=== PATIENT | male | born 1960 | race Caucasian/White ===

== ENCOUNTER 2016-09-02 15:43 | Emergency (ER) | payer OTHER ==
[~2016-09-02] VITALS: Wt 79.0 kg
[~2016-09-02 15:43] MED LIST: LISI-327 PO
[2016-09-02] MEDS ORDERED: KETOROLAC 30 MG INJ IM STA (19:37)
[2016-09-02] MEDS ORDERED: HYDR-906 PO (19:39)
[2016-09-02 19:50] VITALS: BP 170/93; PULSE 65; RESP 17; TEMP 97.8
--- NOTE | 2016-09-02 20:44 | ERD ---
ER Documentation Chief Complaint Date/Time DATE: 09/02/16 TIME: 20:41 Chief Complaint RIGHT FOOT/HEEL PAIN X6 MONTHS HPI 56-year-old male otherwise healthy comes in with right heel pain for 6 months. Patient states that his primary care doctor did an x-ray, as well as an MRI, he was told that there was inflammation in the tendon, and he is supposed to see a room service bellhop on the which is 10 days from now. Patient's pain is localized to the right heel, worse when he walks on it, it is described as sharp and achy , rated 6 out of 10. He has some improvement with Motrin. MRI of his right heel was done less than 2 months ago. He denies any trauma to the area, paresthesias. No fevers or chills. ROS All systems reviewed and are negative except as per history of present illness. Medications Home Meds Active Scripts Hydrocodone/Acetaminophen (Clayton 5-325 Tablet) 1 Each Tablet, 1 TAB PO Q6H Y for PAIN, #20 TAB Prov:ERWIN ERVIN PA-C 09/02/16 Reported Medications Lisinopril-Hydrochlorothiazide (Lisinopril-HCTZ) 1 Tab Tablet, 1 TAB PO DAILY 01/02/14 Allergies Allergies: Coded Allergies: No Known Allergy (Unverified , 09/02/16) PMhx/Soc Medical and Surgical Hx: pt denies Medical Hx History of Surgery: Yes (ABD HERNIA SURG X3) Anesthesia Reaction: No Hx Neurological Disorder: No Hx Respiratory Disorders: No Hx Cardiac Disorders: Yes (HTN, HYPERLIPID) Hx Psychiatric Problems: No Hx Miscellaneous Medical Probl: No Hx Alcohol Use: No Hx Substance Use: No Hx Tobacco Use: No Smoking Status: Never smoker Physical Exam Vitals Vital Signs Date Time Temp Pulse Resp B/P Pulse Ox O2 Delivery O2 Flow Rate FiO2 09/02/16 19:50 97.8 65 17 170/93 97 Room Air 09/02/16 16:11 97.8 81 17 166/81 98 Physical Exam General: Well-developed, well-nourished. The patient appears in no acute distress. HEENT: Head is normocephalic, atraumatic. No scleral icterus. Neck: Supple. Nontender. Lungs: Clear to auscultation. Normal air movement. Heart: Regular rate and rhythm. S1 and S2 are normal. No murmurs, gallops, or rubs. Abdomen: Nondistended. Extremities: Patient's right heel is tender to palpation, there are no skin changes, warmth or erythema, no ulcerations. Knee atraumatic, no ecchymosis. Normal Avila. Neurologic: Alert and oriented 3. No focal deficits. Normal speech and gait. Skin: Normal turgor. No rash or lesions. Results 24 hrs Current Medications Medications (Trade) Dose Ordered Sig/Katia Route PRN Reason Start Time Stop Time Status Last Admin Dose Admin Ketorolac Tromethamine (Toradol) 30 mg ONCE STAT IM 09/02/16 19:37 09/02/16 19:38 DC 09/02/16 19:42 Procedures/MDM Patient is requesting an injection, he received Toradol 30 mg IM. His right foot was placed in a walker boot. Splint Assessment: Neurovascularly intact post splint placement with good fit. MDM: 56-year-old male comes in with right heel pain, tendinitis versus calcaneal spur. Patient's examination is consistent with localized heel pain that is likely from a musculoskeletal injury. Since he has previously had an MRI and has follow with podiatry, and I do not see limb threatening processes this patient may follow-up with podiatry outpatient in the next week or so. He has an appointment to see a room service bellhop on the , I have advised him to follow- up with them and use the boot as needed and he will be given a short course of Clayton. Other differentials include foot ulcer, diabetic ulcer, arterial disease , Achilles tendinitis or rupture, fracture, osteomyelitis. Patient's blood pressure was elevated (>120/80) but appears stable without evidence of hypertension emergency or urgency. The patient was counseled about the risks of hypertension and urged to pursue outpatient monitoring and therapy within a week with their primary care physician. Departure Diagnosis: Primary Impression: Foot pain Condition: Good Patient Instructions: Tendonitis Additional Instructions: LA PODOLOGIA Specialist:Usted tiene rolanda condicin mdica que requiere que thelma a un especialista dentro de los prximo SEMANA.POR FAVOR,CON JOHANSEN SEGUIMIENTO DE PRIMARIA PHSICIAN refferal. SI USTED NO TIENE UN MDICO GENERAL Y / O USTED NO PUEDE PAGAR darlene a un mdico,los siguientes vicente RECURSOS sido suministrado a usted. ES JOHANSEN RESPONSABILIDAD PARA SER VISTOS POR EL ESPECIALISTA: ERWIN ERVIN PA-C Sep 02, 2016 20:44
== END 2016-09-02 20:00 | disposition home or self-care (01) ==
LOC: FTE 15:43
DX: M79.671 Pain in right foot (principal); I10 Essential (primary) hypertension
CPT/HCPCS: 29515; 96372; 99284; J1885

== ENCOUNTER 2017-05-16 13:27 | Emergency (ER) | payer OTHER ==
[~2017-05-16] VITALS: Ht 165.1 cm; Wt 77.0 kg
[~2017-05-16 13:27] MED LIST changes: +HYDR-906 PO
[2017-05-16 13:32] VITALS: Ht 165.1 cm; Wt 77.0 kg
[2017-05-16] MEDS ORDERED: ACET500C5 PO (15:44)
--- NOTE | 2017-05-16 15:52 | ERD ---
ER Documentation Chief Complaint Date/Time DATE: 05/16/17 TIME: 15:50 Chief Complaint Complains of fever this am HPI 57-year-old male complaining of fever this morning. Patient stated that his temperature this morning is 102. He took Tylenol at 6 AM. Patient also reports on and off fever for the last week. He reports chest pressure, body ache, as well as slight sore throat. Denies cough or nasal congestion. ROS All systems reviewed and are negative except as per history of present illness. Medications Home Meds Active Scripts Acetaminophen* (Tylophen*) 500 Mg Capsule, 1 CAP PO Q6H Y for PAIN AND OR ELEVATED TEMP, #20 CAP Prov:ALEXANDRIA TREVIÑO. ACUTE CARE PHYSICAL THERAPIST 05/16/17 Hydrocodone/Acetaminophen (Gilman 5-325 Tablet) 1 Each Tablet, 1 TAB PO Q6H Y for PAIN, #20 TAB Prov:ERWIN ERVIN PA-C 09/02/16 Reported Medications Lisinopril-Hydrochlorothiazide (Lisinopril-HCTZ) 1 Tab Tablet, 1 TAB PO DAILY 01/02/14 Allergies Allergies: Coded Allergies: No Known Allergy (Unverified , 09/02/16) PMhx/Soc History of Surgery: Yes (ABD HERNIA SURG X3) Anesthesia Reaction: No Hx Neurological Disorder: No Hx Respiratory Disorders: No Hx Cardiac Disorders: Yes (HTN, HYPERLIPID) Hx Psychiatric Problems: No Hx Miscellaneous Medical Probl: No Hx Alcohol Use: No Hx Substance Use: No Hx Tobacco Use: No Physical Exam Vitals Vital Signs Date Time Temp Pulse Resp B/P Pulse Ox O2 Delivery O2 Flow Rate FiO2 05/16/17 13:32 98.0 71 20 146/80 95 Physical Exam General: Well-developed, well-nourished, conscious and coherent, in no distress Skin: Warm and dry without rash, good texture and turgor Head: Normocephalic without evidence of trauma Eyes: Sclera and conjunctivae normal; pupils equal, round, and reactive to light; extraocular movements are intact Ears: Canals are patent. Tympanic membranes are clear Nose/Face: Without rhinorrhea Mouth/throat: Mucous membranes are moist. Posterior pharynx mild erythematous without lesions or exudates Neck: Supple without meningismus or adenopathy. Carotids are equal. Trachea midline. No bruits or JVD Chest: Normal AP diameter. Good expansion without retractions. Nontender. Lungs are clear to auscultate bilaterally with good tidal volume. Nonproductive cough elicited with deep breath. Heart: Regular rate and rhythm. No murmur, rub, or gallops heard Back: Without spinal or CVA tenderness Extremities: Full range of motion. Good strength bilaterally. No clubbing, cyanosis, or edema. Peripheral pulses are intact. Sensation intact Neuro: Alert and oriented 4, GCS 15. Cranial nerves grossly intact. Motor and sensory exams nonfocal. Moves all extremities. Speech clear. Gait normal Procedures/MDM Well-appearing 57-year-old male reports fever at home this morning of 102. Patient is currently afebrile, he does not have any shortness of breath. Chest x-ray is negative. EKG: Normal sinus rhythm, normal axis. No ST segment elevation or depression. No ectopic beats. No QT prolongation. No other EKG abnormalities. EKG read by Dr. Head. I doubt pneumonia, bronchitis, PE, pneumothorax, ACS. It is uncertain the cause of patient's fever. I have a viral upper respiratory infection. Patient appears well, stable for discharge and outpatient management. Medical decision making shared with patient and family. Education provided to patient and family. Patient and family expressed understanding of the plan. Medications on discharge: Tylenol. Follow-up: Primary care provider in 2-3 days or return to ED if worse. The case was reviewed and discussed with Dr. Head, who agrees with the plan of care including labs, treatment, and advanced imaging as appropriate. Disclaimer: Inadvertent spelling and grammatical errors are likely due to EHR/ dictation software use and do not reflect on the overall quality of patient care. Also, please note that the electronic time recorded on this note does not necessarily reflect the actual time of the patient encounter. Departure Diagnosis: Primary Impression: Fever Fever type: unspecified Qualified Code: R50.9 - Fever, unspecified fever cause Condition: Stable Patient Instructions: Fever Control (Adult) Referrals: RENATE SHAW MD (PCP) Additional Instructions: Llame al doctor MAANA y moses rolanda DONATO PARA DENTRO DE 2-3 ODONNELL.Dgale a la secretaria que nosotros le instruimos hacer esta donato.Avise o llame si braden condicin se empeora antes de la donato. Regresa aqui si peor o no mejor. ALEXANDRIA TREVIÑO. DIAN May 16, 2017 15:52
--- NOTE | 2017-05-16 15:53 | RADRPT ---
PROCEDURE: XR Chest. CLINICAL INDICATION: Cough and fever. TECHNIQUE: Single frontal view. COMPARISON: 01/02/2014. FINDINGS: The lungs are clear. The heart size is normal. There is no pleural effusion or pneumothorax. There is a hiatus hernia as seen previously. IMPRESSION: 1. Hiatus hernia as seen previously. 2. Otherwise normal chest x-ray. RPTAT: QQ .Rick Handley MD, MD Date Time Electronically viewed and signed by .Rick Handley MD, on 05/16/2017 15:52 .R/
== END 2017-05-16 16:41 | disposition home or self-care (01) ==
LOC: FTE 13:27
DX: R50.9 Fever, unspecified (principal); I10 Essential (primary) hypertension
CPT/HCPCS: 71010; 93005